=== PATIENT | male | born 1935 | race Caucasian/White ===

== ENCOUNTER 2018-03-22 15:37 | Inpatient (IN) | payer MEDICARE ==
[~2018-03-22] VITALS: Ht 185.4 cm; Wt 98.7 kg
[~2018-03-22 15:37] MED LIST: ALLO300T PO; AMLO-150 PO; AMLO5TAB4 PO; ASPI-515 PO; ATEN25TA PO; CLOP75TA PO; GOUT MEDICATION; HYDR25TA6 PO; LISI-167 PO; LISI-170 PO; MULT-717 PO; PANT20TA2 PO; TRAM50TA2 PO; TRAZ50TA66 PO
--- NOTE | 2018-03-22 15:47 | NUR ---
83 Y/O MALE BIB AMBULANCE WITH C/O GLF. PER REPORT PT FELL 3 TIMES TODAY. ONCE WAS THIS AM IN THE KITCHEN. WAS ABLE TO HELP HIM UP. ON ARRIVAL OF EMS, PT FELL OUT OF RECLINER. HE STOOD UP AND HIS LEGS GAVE OUT. PT WAS WALKING AROUND HOUSE TO SHOW EMS THAT HE DIDN'T NEED TO COME TO ER, PT THEN FELL A THIRD TIME. NO C/O LOC OR TRAUMA. PER PT "I HAVE BEEN WEAK FOR A FEW DAYS. I'VE ALSO HAD A COUGH." PT PLACED ON CONT PULSE OX,NIBP,C ARDIAC MONITOR. NO C/O N/V/D, CP SOB
[2018-03-22] MEDS ORDERED: METOPROLOL (15:56)
[2018-03-22] MEDS ORDERED: XARELTO (15:56)
[2018-03-22] MEDS ORDERED: SODIUM CHLORIDE FLUSH 10ML SYR IVF ONE (16:00)
[2018-03-22] MEDS ORDERED: DILTIAZEM 125 MG in DEXTROSE 5% 100 ML IV SCH (16:04)
--- NOTE | 2018-03-22 16:07 | NUR ---
PIV ESTABLISHED. LABS DRAWN. PT TOLERATED WITH NO COMPLICATIONS.
[2018-03-22 16:23] LABS: BASOPHILS % (AUTO) 0 % (0-1); EOSINOPHILS # (AUTO) 0.02 x10^3/uL (0-0.4); EOSINOPHILS % (AUTO) 0 % (1-7); LYMPHOCYTES # (AUTO) 0.45 x10^3/uL (1-3.4); LYMPHOCYTES % (AUTO) 6 % (22-44); MD NO; MEAN CORPUSCULAR HEMOGLOBIN 31.6 pg (27.5-34.5); MEAN CORPUSCULAR HGB CONC 33.5 g/dL (33.2-36.2); MEAN CORPUSCULAR VOLUME 94.4 fL (81-97); MEAN PLATELET VOLUME 8.7 fL (7.4-10.4); MONOCYTES # (AUTO) 1.01 x10^3/uL (0.2-0.8); MONOCYTES % (AUTO) 13 % (2-9); NEUTROPHILS # (AUTO) 6.19 x10^3/uL (1.8-6.8); NEUTROPHILS % (AUTO) 81 % (42-75); PLATELET COUNT 210 x10^3/uL (130-400); RED BLOOD COUNT 4.54 x10^6/uL (4.38-5.82); RED CELL DISTRIBUTION WIDTH 14.2 % (9.4-14.8)
--- NOTE | 2018-03-22 16:27 | NUR ---
PT TO IMAGING.
[2018-03-22 16:30] LABS: ALANINE AMINOTRANSFERASE 36 U/L (12-78); ALBUMIN 3.8 g/dL (3.4-5.0); ANION GAP 9 mmol/L (5-15); CALCIUM 8.8 mg/dL (8.5-10.1); CHLORIDE 102 mmol/L (98-107); INTERNATIONAL NORMALIZED RATIO 1.21 (0.93-1.1); PROTHROMBIN TIME 12.7 Seconds (9.6-11.5)
[2018-03-22 16:35] LABS: ALKALINE PHOSPHATASE 78 U/L (45-117); BILIRUBIN,TOTAL 0.6 mg/dL (0.2-1.0); CREATININE 1.25 mg/dL (0.7-1.3); TOTAL PROTEIN 7.2 g/dL (6.4-8.2); TROPONIN I < 0.015 ng/mL (0.000-0.045)
--- NOTE | 2018-03-22 16:38 | NUR ---
PT BACK FROM IMAGING.
--- NOTE | 2018-03-22 16:58 | NUR ---
PT RESTING ON GURNEY. NO ACUTE DISTRESS NOTED. BEDSIDE. NO NEEDS REQUESTED AT THIS TIME.
[2018-03-22] MEDS ORDERED: SODIUM CHLORIDE FLUSH 10ML SYR IVF PRN (17:30)
[2018-03-22] MEDS ORDERED: RIVA15TA PO (18:13)
[2018-03-22] MEDS ORDERED: METO-264 PO (18:13)
--- NOTE | 2018-03-22 18:33 | NUR ---
LATE ENTRY FOR 1800 PT CALLED BACK WITH MEDICATION DOSAGES. PT RESTING ON GURNEY. NO ACUTE DISTRESS NOTED. NO NEEDS REQUESTED AT THIS TIME.
--- NOTE | 2018-03-22 18:34 | NUR ---
PT SLEEPING INTERMITTENTLY ON GURNEY. NO ACUTE DISTRESS NOTED. WARM BLANKET PROVIDED. NO NEEDS REQUESTED AT THIS TIME. CALL LIGHT IN REACH OF PT.
--- NOTE | 2018-03-22 18:54 | NUR ---
BEDSIDE REPORT TO CHARLI GORDON.
--- NOTE | 2018-03-22 18:54 | NUR ---
PT BEDSIDE REPORT FROM ABIODUN AUGUSTIN. THIS RN TO ASSUME CARE OF PT. VSS. CALL LIGHT WITHIN REACH. PT ON HOLD FOR CARD TELE.
[2018-03-22] MEDS ORDERED: ONDANSETRON ODT 4 MG PO PRN (19:30)
[2018-03-22] MEDS ORDERED: DOCUSATE 100 MG CAPSULE PO PRN (19:30)
[2018-03-22] MEDS ORDERED: LIDODERM 5% PATCH TD PRN (19:30)
[2018-03-22] MEDS ORDERED: ACETAMINOPHEN 325 MG TABLET PO PRN (19:30)
[2018-03-22] MEDS ORDERED: hydrALAzine 20 MG/ML, 1ML IVPush PRN (19:30)
[2018-03-22] MEDS: DILTIAZEM 125 MG in SODIUM CHLORIDE 0.9% 100 ML IV SCH (19:30)
[2018-03-22] MEDS ORDERED: TEMAZEPAM 15 MG CAPSULE PO PRN (19:30)
--- NOTE | 2018-03-22 19:42 | NUR ---
PT TRANSFERRED TO HOSPITAL BED AT THIS TIME. NO IMMEDIATE NEEDS.
[2018-03-22] MEDS ORDERED: RIVAROXABAN 15 MG TABLET PO SCH (21:00)
[2018-03-22] MEDS ORDERED: METOPROLOL SUCCINATE 50 MG TAB.ER.24H PO SCH (21:00)
[2018-03-22] MEDS: LISINOPRIL 20 MG TABLET PO SCH (21:13)
[2018-03-22 21:29] VITALS: BP 130/83
[2018-03-22 22:25] LABS: TROPONIN I < 0.015 ng/mL (0.000-0.045)
[2018-03-23 02:06] VITALS: BP 134/79
[2018-03-23 04:45] LABS: TROPONIN I < 0.015 ng/mL (0.000-0.045)
[2018-03-23] MEDS: DILTIAZEM 125 MG in SODIUM CHLORIDE 0.9% 100 ML IV SCH (05:39)
[2018-03-23 08:22] VITALS: BP 130/81
[2018-03-23] MEDS: MULTIVITAMIN 1 TABLET PO SCH (09:25)
[2018-03-23] MEDS: LISINOPRIL 20 MG TABLET PO SCH ×2 (09:25→20:13)
[2018-03-23] MEDS: HYDROCHLOROTHIAZIDE 25 MG TABLET PO SCH (09:25)
[2018-03-23] MEDS: METOPROLOL SUCCINATE 25 MG TAB.ER.24H PO SCH ×2 (09:26→20:13)
[2018-03-23] MEDS: ALLOPURINOL 300 MG TABLET PO SCH (09:27)
[2018-03-23 13:21] VITALS: BP 135/78
[2018-03-23 13:49] LABS: MICROSCOPIC INDICATED
[2018-03-23 13:50] LABS: CULTURE INDICATED? YES
[2018-03-23] MEDS ORDERED: RIVAROXABAN 15 MG TABLET PO SCH (17:00)
[2018-03-23 18:39] VITALS: BP 146/76
[2018-03-23 20:00] VITALS: BP 130/89
[2018-03-24 01:50] VITALS: BP 118/81
[2018-03-24 08:41] VITALS: BP 150/90
[2018-03-24] MEDS: LISINOPRIL 20 MG TABLET PO SCH (08:56)
[2018-03-24] MEDS: METOPROLOL SUCCINATE 25 MG TAB.ER.24H PO SCH (08:57)
[2018-03-24] MEDS: MULTIVITAMIN 1 TABLET PO SCH (08:57)
[2018-03-24] MEDS: HYDROCHLOROTHIAZIDE 25 MG TABLET PO SCH (08:57)
[2018-03-24] MEDS: ALLOPURINOL 300 MG TABLET PO SCH (08:58)
[2018-03-24] MEDS ORDERED: METO25TA91 PO (11:45)
[2018-03-24] MEDS ORDERED: FUROSEMIDE 20 MG/2 ML IV ONE (12:00)
== END 2018-03-24 13:20 | disposition home or self-care (01) | DRG 291 ==
LOC: ED 17:07 → EDIP 17:10 → 5SO 20:46 → DCLOUNGE 03-24 13:03
PROVIDERS: ADMIT Internal Medicine; ATTEND Internal Medicine
DX: I11.0 Hypertensive heart disease with heart failure (principal); I50.31 Acute diastolic (congestive) heart failure; D68.9 Coagulation defect, unspecified; I48.91 Unspecified atrial fibrillation; R29.6 Repeated falls; Z79.01 Long term (current) use of anticoagulants; E66.9 Obesity, unspecified; M10.9 Gout, unspecified; R53.1 Weakness; I35.0 Nonrheumatic aortic (valve) stenosis; I27.20 Pulmonary hypertension, unspecified; Z68.28 Body mass index [BMI] 28.0-28.9, adult; Z88.2 Allergy status to sulfonamides
CPT/HCPCS: 36415; 70450; 71045; 80053; 81001; 83880; 84484; 85025; 85610; 85730; 87040; 87086; 93005; 93306; 99285; G0378; J1940

== ENCOUNTER → 2018-05-06 | Outpatient (CLI) | payer MEDICARE ==
[~2018-05-06] MED LIST changes: +METO-264 PO; +METO25TA91 PO; +METOPROLOL; +RIVA15TA PO; +XARELTO
== END | disposition home or self-care (01) ==
LOC: CVU 09:43
PROVIDERS: ATTEND Family Medicine
DX: M24.812 Other specific joint derangements of left shoulder, not elsewhere classified (principal); I70.203 Unspecified atherosclerosis of native arteries of extremities, bilateral legs; E78.5 Hyperlipidemia, unspecified; I10 Essential (primary) hypertension; I48.91 Unspecified atrial fibrillation
CPT/HCPCS: 93922; 93925